=== PATIENT | female | born 1975 | race Caucasian/White ===

== ENCOUNTER 2021-07-03 19:52 | Emergency (ER) | payer SELFPAY ==
[2021-07-03] MEDS ORDERED: HYDROMORPHONE HCL 1 MG/ML INJ IV PRN (20:49)
[2021-07-03] MEDS ORDERED: ONDANSETRON 4 MG/2 ML VIAL IV PRN (20:49)
[2021-07-03] MEDS ORDERED: D5 0.45 NS 1,000 ML IV SCH (21:00)
[2021-07-03 21:46] LABS: Absolute Lymphocytes (CBC) 1.8 K/uL (0.7-4.9); Hematocrit 37.9 % (36.0-45.0); Lymphocytes % 13.1 % (15.3-44.8); MPV 8.3 fL (7.6-11.3); RBC Red Blood Cell Count 4.14 M/uL (3.86-4.86)
[2021-07-03] MEDS ORDERED: PIPER TAZO 3.375 GM in NA CHLORIDE 0.9% 100 ML IV SCH (22:00)
[2021-07-03 22:01] LABS: Protime INR 0.96
[2021-07-03 22:12] LABS: BUN Blood Urea Nitrogen 10 mg/dL (7-18); Bicarbonate 27 mmol/L (21-32); Glucose Level 90 mg/dL (74-106); Potassium 3.8 mmol/L (3.5-5.1); Sodium Level 142 mmol/L (136-145)
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
[2021-07-04 01:09] VITALS: BP 128/77; TEMP 98.5; O2SAT 98
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
== END 2021-07-04 00:01 ==
LOC: ER 19:52 → ERHOLD 21:04 → UNDOADMIN 21:04 → ER 07-04 00:01
DX: Z04.71 Encounter for examination and observation following alleged adult physical abuse (principal)
CPT/HCPCS: 36415; 70450; 70498; 72125; 80048; 82565; 85025; 85610; 86850; 86900; 86901; 99284; Q9967